=== PATIENT | female | born 1975 | race Caucasian/White ===

== ENCOUNTER 2016-08-29 22:04 | Emergency (ER) | payer BC, OTHER ==
[~2016-08-29] VITALS: Ht 165.1 cm; Wt 97.5 kg
--- NOTE | ~2016-08-29 | EKG ---
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 : 1975 Requested By: Desiree Mcghee Order Number: [id number] MD: Ed Davalos Measurements Intervals [place] Rate: 73 P: 81 [place]: 161 QRS: 12 QRSD: 118 T: -72 QT: 423 QTc: 467 Interpretive Statements Sinus rhythm Biatrial enlargement Right ventricular conduction delay LVH with IVCD and secondary repol abnrm Inferior infarct, age indeterminate Compared to ECG 08/11/2016 20:01:03 Atrial abnormality now present criteria for inferior infarct are now present nonspecific change ST and T wave segments criteria for septal infarct no longer present Electronically Signed On 08-30-2016 8:11:27 PATIENT SERVICES REP by Ed Davalos [email or web address] <ELECTRONICALLY SIGNED> By: Ed Davalos MD, FACC 08/30/16810 06 06 Ed Davalos MD, FAC /EPI
--- NOTE | ~2016-08-29 | EKG ---
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1975 Requested By: Desiree Mcghee Order Number: [id number] MD: Ed Davalos Measurements Intervals [place] Rate: 101 P: 57 WA: 193 QRS: 37 QRSD: 91 T: 73 QT: 341 QTc: 442 Interpretive Statements Sinus tachycardia Poor R-wave progression Nonspecific ST and T wave abnormality No previous ECGs available for comparison Electronically Signed On 08-30-2016 8:09:05 SOCIAL WORK INSTRUCTOR by Ed Davalos [email or web address] <ELECTRONICALLY SIGNED> By: Ed Davalos MD, [facility] 08/30/16 0809 09 09 Ed Davalos MD, FACC /EPI
[~2016-08-29 22:04] MED LIST: CIPRO500 MG PO; FLEXERIL PO; IBUPROFEN 800800 MG PO; PEPCID20 MG PO; ZOFRAN ODT4 MG PO; ZOFRAN ODT8 MG PO
[2016-08-29 23:55] LABS: ABSOLUTE NEUTROPHILS 5.5 thou/uL (1.4-8.2); BASOPHILS 1.1 % (0.0-2.0); EOSINOPHILS 1.2 % (0.0-3.0); HEMOGLOBIN 10.5 gm/dL (12.0-15.0); LYMPHOCYTES 26.1 % (24.0-44.0); MCHC 31.9 % (28.0-37.0); MONOCYTES 7.6 % (1.0-8.0); PLATELET COUNT 223 thou/uL (150-400); RBC 4.58 mil/uL (4.20-5.00); RDW 16.2 % (10.5-14.5); WBC 8.7 thou/uL (4.0-11.0)
[2016-08-29 23:56] LABS: MANUAL DIFF NO
[2016-08-30 00:04] LABS: CALCIUM 8.5 mg/dL (8.5-10.1); CREATININE 0.7 mg/dL (0.6-1.3); POTASSIUM 3.6 mmol/L (3.5-5.1)
[2016-08-30 02:42] VITALS: BP 113/71
== END 2016-08-30 02:43 | disposition home or self-care (01) ==
LOC: ER 22:04
PROVIDERS: Emergency Medicine
DX: R00.2 Palpitations (principal); R51 Headache; F17.210 Nicotine dependence, cigarettes, uncomplicated; R91.1 Solitary pulmonary nodule; Z90.49 Acquired absence of other specified parts of digestive tract; Z98.890 Other specified postprocedural states

== ENCOUNTER 2016-11-19 04:29 | Emergency (ER) | payer OTHER ==
[~2016-11-19] VITALS: Ht 162.6 cm; Wt 99.8 kg
--- NOTE | ~2016-11-19 | EKG ---
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: RITCHIE : 1975 Requested By: Noemí Falcon Order Number: [id number] MD: Christopher Hassan Measurements Intervals [place] Rate: 67 P: 26 VT: 173 QRS: 32 QRSD: 89 T: 43 QT: 409 QTc: 432 Interpretive Statements Sinus rhythm Low voltage, precordial leads Compared to ECG 08/29/2016 22:10:21 Low QRS voltage now present Sinus tachycardia no longer present Poor R-wave progression no longer present ST (T wave) deviation no longer present Electronically Signed On 11-19-2016 13:34:23 CDT by Christopher Hassan [email or web address] <ELECTRONICALLY SIGNED> By: Christopher Hassan MD 11/19/16 1334 0435 0435 Christopher Hassan MD /EPI
[2016-11-19 05:12] LABS: ABSOLUTE NEUTROPHILS 3.6 thou/uL (1.4-8.2); BASOPHILS 0.8 % (0.0-2.0); EOSINOPHILS 2.3 % (0.0-3.0); HEMATOCRIT 35.2 % (37.0-47.0); LYMPHOCYTES 30.7 % (24.0-44.0); MCH 22.5 pg (26.0-34.0); MCHC 31.2 g/dL (28.0-37.0); MCV 72.1 fL (80.0-100.0); MONOCYTES 8.4 % (1.0-8.0); PLATELET COUNT 219 thou/uL (150-400); POLYS 57.8 % (36.0-66.0); RBC 4.88 mil/uL (4.20-5.00); RDW 17.1 % (10.5-14.5); WBC 6.3 thou/uL (4.0-11.0)
[2016-11-19 05:14] LABS: MANUAL DIFF NO
[2016-11-19 05:19] LABS: URINE BILIRUBIN NEGATIVE (Negative); URINE BLOOD TRACE (Negative); URINE COLOR YELLOW; URINE GLUCOSE-RANDOM* NEGATIVE (Negative); URINE KETONES NEGATIVE (Negative); URINE LEUKOCYTES-REFLEX TRACE (Negative); URINE PROTEIN (DIPSTICK) NEGATIVE (Negative); URINE SPECIFIC GRAVITY 1.025 (1.003-1.035)
[2016-11-19 05:25] LABS: APTT 28.2 Seconds (24.5-32.8); PROTIME 10.7 Seconds (9.3-11.4)
[2016-11-19 05:27] LABS: ANION GAP 11 mmol/L (7-16); BUN 9 mg/dL (7-18); CALCIUM 8.6 mg/dL (8.5-10.1); CHLORIDE 105 mmol/L (98-107); CO2 24 mmol/L (21-32); CREATININE 0.7 mg/dL (0.6-1.3); GLUCOSE 103 mg/dL (70-99); POTASSIUM 3.7 mmol/L (3.5-5.1); SODIUM 140 mmol/L (136-145)
[2016-11-19] MEDS ORDERED: ZOFRAN ODT4 MG PO (05:28)
[2016-11-19] MEDS ORDERED: ANTIVERT25 MG PO (05:28)
[2016-11-19 05:37] LABS: ALBUMIN 2.9 g/dL (3.4-5.0); ALKALINE PHOSPHATASE 55 U/L (46-116); SGOT 15 U/L (15-37); SGPT 18 U/L (30-65); TOTAL BILIRUBIN 0.1 mg/dL (<0.1-1.0); TOTAL PROTEIN 7.2 g/dL (6.4-8.2); TROPONIN-I < 0.04 ng/mL (<0.04-0.07)
[2016-11-19 05:53] VITALS: BP 120/70
[2016-11-19 08:44] LABS: ANISOCYTOSIS 1+; MICROCYTES 1+
== END 2016-11-19 05:56 | disposition home or self-care (01) ==
LOC: ER 04:29
PROVIDERS: Emergency Medicine
DX: R42 Dizziness and giddiness (principal); R11.0 Nausea; F17.210 Nicotine dependence, cigarettes, uncomplicated; Z90.49 Acquired absence of other specified parts of digestive tract

== ENCOUNTER 2017-04-06 20:45 | Emergency (ER) | payer OTHER ==
[~2017-04-06] VITALS: Ht 162.6 cm; Wt 97.5 kg
[~2017-04-06 20:45] MED LIST changes: +ANTIVERT25 MG PO
[2017-04-06] MEDS ORDERED: HYDROCODONE-AP1 EAC6 PO (22:09)
[2017-04-06] MEDS ORDERED: NAPROSYN500 MG PO (22:09)
[2017-04-06 22:13] VITALS: BP 144/90
== END 2017-04-06 22:13 | disposition home or self-care (01) ==
LOC: ER 20:45
DX: K02.9 Dental caries, unspecified (principal); F17.210 Nicotine dependence, cigarettes, uncomplicated; Z98.890 Other specified postprocedural states

== ENCOUNTER 2017-04-13 11:48 | Emergency (ER) | payer OTHER ==
[~2017-04-13] VITALS: Ht 165.1 cm; Wt 97.5 kg
[~2017-04-13 11:48] MED LIST changes: +HYDROCODONE-AP1 EAC6 PO; +NAPROSYN500 MG PO
[2017-04-13 12:09] LABS: URINE BILIRUBIN NEGATIVE (Negative); URINE BLOOD NEGATIVE (Negative); URINE COLOR YELLOW; URINE GLUCOSE-RANDOM* NEGATIVE (Negative); URINE KETONES NEGATIVE (Negative); URINE NITRITE NEGATIVE (Negative); URINE PROTEIN (DIPSTICK) NEGATIVE (Negative); URINE SPECIFIC GRAVITY 1.015 (1.003-1.035); URINE UROBILINOGEN 0.2 E.U./dl (0.2-1.0)
[2017-04-13 12:23] LABS: HEMATOCRIT 36.4 % (37.0-47.0); HEMOGLOBIN 11.4 gm/dL (12.0-15.0); MCH 22.6 pg (26.0-34.0); MCHC 31.2 g/dL (28.0-37.0); MCV 72.4 fL (80.0-100.0); RBC 5.02 mil/uL (4.20-5.00); RDW 17.5 % (10.5-14.5); WBC 15.6 thou/uL (4.0-11.0)
[2017-04-13 12:24] LABS: MANUAL DIFF YES
[2017-04-13 12:28] LABS: CALCIUM 8.9 mg/dL (8.5-10.1); CREATININE 0.7 mg/dL (0.6-1.0); POTASSIUM 4.8 mmol/L (3.5-5.1)
[2017-04-13 12:34] LABS: ALBUMIN 3.3 g/dL (3.4-5.0); TOTAL BILIRUBIN 0.4 mg/dL (<0.1-1.0)
[2017-04-13 12:50] LABS: ABSOLUTE NEUTROPHILS 8.4 thou/uL (1.4-8.2); ANISOCYTOSIS 1+; TOTAL CELL COUNT 100
[2017-04-13 12:52] LABS: HYPOCHROMASIA 1+; MICROCYTES 1+
[2017-04-13 13:21] LABS: PLATELET COUNT 142 thou/uL (150-400)
[2017-04-13] MEDS ORDERED: HYDROCODONE-AP1 EAC6 PO (14:47)
[2017-04-13] MEDS ORDERED: FLAGYL500 MG PO (15:10)
[2017-04-13 15:51] VITALS: BP 138/86
[2017-04-14 18:12] LABS: CHLAMYDIA TRACHOMATIS-PCR Negative (Negative); NEISSERIA GONORRHEA-PCR Negative (Negative)
== END 2017-04-13 15:52 | disposition home or self-care (01) ==
LOC: ER 11:48
PROVIDERS: Nurse Practitioner Family
DX: N73.9 Female pelvic inflammatory disease, unspecified (principal); N83.01 Follicular cyst of right ovary; F17.210 Nicotine dependence, cigarettes, uncomplicated; Z90.49 Acquired absence of other specified parts of digestive tract; Z98.890 Other specified postprocedural states

== ENCOUNTER 2017-04-17 20:45 | Emergency (ER) | payer OTHER | END 2017-04-17 22:56 | disposition home or self-care (01) | LOC: ER 20:45 | DX: N83.201 Unspecified ovarian cyst, right side (principal); F17.210 Nicotine dependence, cigarettes, uncomplicated; Z90.49 Acquired absence of other specified parts of digestive tract; Z98.890 Other specified postprocedural states ==

== ENCOUNTER 2017-11-12 08:31 | Emergency (ER) | payer OTHER ==
[~2017-11-12] VITALS: Ht 165.1 cm; Wt 97.5 kg
--- NOTE | ~2017-11-12 | EKG ---
[place] [address] 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 : 1975 Requested By: Nhan Rodriguez Order Number: [id number] MD: Ed Davalos Measurements Intervals [place] Rate: 75 P: 31 SD: 171 QRS: 26 QRSD: 96 T: 8 QT: 368 QTc: 411 Interpretive Statements Sinus rhythm Low voltage, precordial leads Borderline T abnormalities, anterior leads Baseline wander in lead(s) II,III,aVF Compared to ECG 11/19/2016 04:35:48 No significant change was found Electronically Signed On 11-13-2017 13:57:41 CDT by Ed Davalos [email or web address] <ELECTRONICALLY SIGNED> By: Ed Davalos MD, [facility] 11/13/17 1357 0841 0841 Ed Davalos MD, [facility] /EPI
[~2017-11-12 08:31] MED LIST changes: +FLAGYL500 MG PO; +MOBIC7.5 MG PO; +NORCO 5-325 TA1 EACH PO
[2017-11-12 09:01] LABS: ABSOLUTE NEUTROPHILS 3.9 thou/uL (1.4-8.2); EOSINOPHILS 2.4 % (0.0-3.0); HEMATOCRIT 34.8 % (37.0-47.0); HEMOGLOBIN 11.2 gm/dL (12.0-15.0); LYMPHOCYTES 28.9 % (24.0-44.0); MCH 23.4 pg (26.0-34.0); MCHC 32.1 g/dL (28.0-37.0); MCV 72.8 fL (80.0-100.0); MONOCYTES 6.5 % (1.0-8.0); PLATELET COUNT 249 thou/uL (150-400); POLYS 61.2 % (36.0-66.0); RBC 4.78 mil/uL (4.20-5.00); RDW 16.1 % (10.5-14.5); WBC 6.3 thou/uL (4.0-11.0)
[2017-11-12 09:08] LABS: ANION GAP 6 mmol/L (7-16); BUN 13 mg/dL (7-18); CHLORIDE 103 mmol/L (98-107); CO2 27 mmol/L (21-32); CREATININE 0.9 mg/dL (0.6-1.0); GLUCOSE 132 mg/dL (74-106); SODIUM 136 mmol/L (136-145)
[2017-11-12 09:09] LABS: POTASSIUM 4.2 mmol/L (3.5-5.1)
[2017-11-12 09:16] LABS: ALBUMIN 3.1 g/dL (3.4-5.0); SGOT 23 U/L (15-37); SGPT 20 U/L (30-65); TOTAL BILIRUBIN 0.2 mg/dL (<0.1-1.0); TOTAL PROTEIN 7.7 g/dL (6.4-8.2); TROPONIN-I < 0.04 ng/mL (<0.06)
== END 2017-11-12 10:59 | disposition home or self-care (01) ==
LOC: ER 08:31
PROVIDERS: Emergency Medicine
DX: R07.89 Other chest pain (principal); Z90.49 Acquired absence of other specified parts of digestive tract; F17.210 Nicotine dependence, cigarettes, uncomplicated

== ENCOUNTER 2018-04-12 22:27 | Emergency (ER) | payer OTHER ==
[~2018-04-12] VITALS: Ht 165.1 cm; Wt 104.3 kg
[2018-04-13] MEDS ORDERED: REGLAN 10 MG TA10 MG PO (00:25)
[2018-04-13 02:14] VITALS: BP 110/51
== END 2018-04-13 02:15 | disposition home or self-care (01) ==
LOC: ER 22:27
DX: R51 Headache (principal); F17.210 Nicotine dependence, cigarettes, uncomplicated; Z90.49 Acquired absence of other specified parts of digestive tract

== ENCOUNTER 2018-11-29 02:53 | Emergency (ER) | payer OTHER ==
[~2018-11-29] VITALS: Ht 165.1 cm; Wt 99.8 kg
[~2018-11-29 02:53] MED LIST changes: +REGLAN 10 MG TA10 MG PO
[2018-11-29] MEDS ORDERED: EXCEDRIN MIGRA1 EAC1 PO (03:19)
[2018-11-29 03:29] LABS: ABSOLUTE NEUTROPHILS 4.4 thou/uL (1.4-8.2); EOSINOPHILS 1.8 % (0.0-3.0); HEMATOCRIT 33.7 % (37.0-47.0); HEMOGLOBIN 10.7 gm/dL (12.0-15.0); LYMPHOCYTES 26.1 % (24.0-44.0); MCH 22.3 pg (26.0-34.0); MCHC 31.8 g/dL (28.0-37.0); MCV 70.3 fL (80.0-100.0); MONOCYTES 6.2 % (1.0-8.0); PLATELET COUNT 250 thou/uL (150-400); POLYS 64.9 % (36.0-66.0); RBC 4.79 mil/uL (4.20-5.00); WBC 6.8 thou/uL (4.0-11.0)
[2018-11-29 03:36] LABS: ANION GAP 7 mmol/L (7-16); BUN 15 mg/dL (7-18); CALCIUM 9.3 mg/dL (8.5-10.1); CHLORIDE 103 mmol/L (98-107); CO2 27 mmol/L (21-32); GLUCOSE 111 mg/dL (74-106); POTASSIUM 3.8 mmol/L (3.5-5.1); SODIUM 137 mmol/L (136-145)
[2018-11-29 03:45] LABS: TROPONIN-I <0.06 ng/mL (<0.06)
[2018-11-29 04:53] VITALS: BP 118/73
--- NOTE | 2018-11-29 08:22 | EKG ---
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 : 1975 Requested By: Janeth Burnett Order Number: [id number] MD: Christopher Hassan Measurements Intervals [place] Rate: 80 P: 35 [place]: 160 QRS: 31 QRSD: 88 T: 46 QT: 386 QTc: 446 Interpretive Statements Sinus rhythm Compared to ECG 11/12/2017 08:41:05 T-wave abnormality no longer present Electronically Signed On 11-29-2018 8:22:25 CDT by Christopher Hassan [email or web address] ��������������������������������������������� <ELECTRONICALLY SIGNED> ���������������������������������������� By: Christopher Hassan MD ��������������������������������������������� 11/29/18 0822 0307 6 Christopher Hassan MD /AMANDA
== END 2018-11-29 04:54 | disposition home or self-care (01) ==
LOC: ER 02:53
PROVIDERS: Student in an Organized Health Care Education/Training Program
DX: G43.909 Migraine, unspecified, not intractable, without status migrainosus (principal); R07.89 Other chest pain; Z90.49 Acquired absence of other specified parts of digestive tract

== ENCOUNTER 2019-08-26 17:20 | Emergency (ER) | payer OTHER ==
[~2019-08-26] VITALS: Ht 165.1 cm; Wt 106.1 kg
[~2019-08-26 17:20] MED LIST changes: +EXCEDRIN MIGRA1 EAC1 PO
[2019-08-26 18:04] LABS: URINE BILIRUBIN NEGATIVE (Negative); URINE BLOOD TRACE (Negative); URINE CLARITY CLEAR; URINE COLOR YELLOW; URINE GLUCOSE-RANDOM* NEGATIVE (Negative); URINE KETONES NEGATIVE (Negative); URINE LEUKOCYTES-REFLEX NEGATIVE (Negative); URINE NITRITE-REFLEX NEGATIVE (Negative); URINE PROTEIN (DIPSTICK) NEGATIVE (Negative); URINE SPECIFIC GRAVITY 1.025 (1.005-1.035); URINE UROBILINOGEN 0.2 E.U./dl (0.2-1.0)
[2019-08-26] MEDS ORDERED: CYCLOBENZAPRINE10 MG PO ×2 (21:57→22:14)
[2019-08-26] MEDS ORDERED: NORCO 5-325 TA1 EAC1 PO (21:57)
[2019-08-26 22:15] VITALS: BP 130/77
== END 2019-08-26 22:20 | disposition home or self-care (01) ==
LOC: ER 17:20
PROVIDERS: Physician Assistant
DX: M54.5 Low back pain (principal); G43.909 Migraine, unspecified, not intractable, without status migrainosus; Z90.49 Acquired absence of other specified parts of digestive tract; F17.210 Nicotine dependence, cigarettes, uncomplicated; Z79.82 Long term (current) use of aspirin; Z98.51 Tubal ligation status; W10.9XXA Fall (on) (from) unspecified stairs and steps, initial encounter; Y93.89 Activity, other specified; Y92.89 Other specified places as the place of occurrence of the external cause; Y99.8 Other external cause status

== ENCOUNTER 2019-09-02 18:54 | Emergency (ER) | payer OTHER ==
[~2019-09-02] VITALS: Ht 165.1 cm; Wt 107.0 kg
[~2019-09-02 18:54] MED LIST changes: +CYCLOBENZAPRINE10 MG PO; +NORCO 5-325 TA1 EAC1 PO
[2019-09-02 18:57] VITALS: BP 150/92
[2019-09-02] MEDS ORDERED: METRONIDAZOLE500 M4 (19:01)
[2019-09-02] MEDS ORDERED: AUGMENTIN 875-1 EACH PO (19:28)
== END 2019-09-02 20:21 | disposition home or self-care (01) ==
LOC: ER 18:54
DX: K04.7 Periapical abscess without sinus (principal); G43.909 Migraine, unspecified, not intractable, without status migrainosus; F17.210 Nicotine dependence, cigarettes, uncomplicated; Z90.49 Acquired absence of other specified parts of digestive tract; Z98.51 Tubal ligation status

== ENCOUNTER 2020-07-08 21:08 | Emergency (ER) | payer OTHER ==
[~2020-07-08] VITALS: Ht 165.1 cm; Wt 113.4 kg
[~2020-07-08 21:08] MED LIST changes: +AMOXICILLIN 50500 MG PO; +AUGMENTIN 875-1 EACH PO; +METRONIDAZOLE500 M4
[2020-07-08] MEDS ORDERED: HYDROCODON-ACE1 EA11 PO (21:17)
[2020-07-09 01:17] VITALS: BP 114/51
--- NOTE | 2020-07-09 07:44 | EKG ---
[facility] [place] [address] ELECTROCARDIOGRAM REPORT Name: NAYANA HOPKINS [facility]: [facility] [id number] Admission: 07/08/20 Attend Phys: Discharge: 07/09/20 Date of : [birth year] Report #: [id number] THIS REPORT FOR: cc: FAM - Family physician unknown FAM - Family physician unknown Ed Davalos MD [facility] ~ THIS REPORT FOR: //name// [facility] ED Test Date: 2020-07-08 Test Time: 21:47:41 Pat Name: NAYANA HOPKINS Department: Room: Gender: Bottle Sorter: [facility] : 1975 Requested By: Sergey Crisostomo Order Number: [id number] MD: Ed Davalos Measurements Intervals [place] Rate: 101 P: 47 [place]: 152 QRS: 42 QRSD: 83 T: 54 QT: 330 QTc: 428 Interpretive Statements Sinus tachycardia Possible anteroseptal infarct, age indeterminate Compared to ECG 11/29/2018 03:07:53 Septal Q waves are now present Electronically Signed On 07-09-2020 7:44:10 C WPF DEVELOPER by Ed Davalos [email or web address] <ELECTRONICALLY SIGNED> By: Ed Davalos MD, FAC 07/09/20 0744 46 Ed Davalos MD, [facility] /EPI
== END 2020-07-09 01:24 | disposition home or self-care (01) ==
LOC: ER 21:08
DX: J02.9 Acute pharyngitis, unspecified (principal); G43.909 Migraine, unspecified, not intractable, without status migrainosus; F17.210 Nicotine dependence, cigarettes, uncomplicated; Z90.49 Acquired absence of other specified parts of digestive tract; Z79.899 Other long term (current) drug therapy; Z20.828 Contact with and (suspected) exposure to other viral communicable diseases

== ENCOUNTER 2020-10-24 21:41 | Emergency (ER) | payer OTHER ==
[~2020-10-24] VITALS: Ht 165.1 cm; Wt 113.4 kg
[~2020-10-24 21:41] MED LIST changes: +HYDROCODON-ACE1 EA11 PO
[2020-10-24 21:56] VITALS: BP 137/101
[2020-10-24] MEDS ORDERED: PERCOCET 5-3251 EACH PO (22:11)
[2020-10-24] MEDS ORDERED: IBUPROFEN 800800 M1 PO (22:11)
== END 2020-10-24 22:26 | disposition home or self-care (01) ==
LOC: ER 21:41
DX: T24.201A Burn of second degree of unspecified site of right lower limb, except ankle and foot, initial encounter (principal); F17.210 Nicotine dependence, cigarettes, uncomplicated; G43.909 Migraine, unspecified, not intractable, without status migrainosus; X11.8XXA Contact with other hot tap-water, initial encounter; Y93.89 Activity, other specified; Y92.89 Other specified places as the place of occurrence of the external cause; Y99.0 Civilian activity done for income or pay

== ENCOUNTER 2021-03-29 14:25 | Emergency (ER) | payer OTHER ==
[~2021-03-29] VITALS: Ht 165.1 cm; Wt 111.1 kg
[~2021-03-29 14:25] MED LIST changes: +IBUPROFEN 800800 M1 PO; +PERCOCET 5-3251 EACH PO
[2021-03-29 15:12] LABS: HEMATOCRIT 35.2 % (37.0-47.0); HEMOGLOBIN 11.2 gm/dL (12.0-15.0); MCHC 31.8 g/dL (28.0-37.0); MCV 72.3 fL (80.0-100.0); RBC 4.87 mil/uL (4.20-5.00); RDW 15.9 % (10.5-14.5); WBC 4.5 thou/uL (4.0-11.0)
[2021-03-29 15:16] LABS: ANION GAP 6 mmol/L (7-16); BUN 8 mg/dL (7-18); CALCIUM 8.7 mg/dL (8.5-10.1); CHLORIDE 103 mmol/L (98-107); CO2 28 mmol/L (21-32); CREATININE 0.9 mg/dL (0.6-1.0); GLUCOSE 91 mg/dL (74-106); POTASSIUM 3.8 mmol/L (3.5-5.1); SODIUM 137 mmol/L (136-145)
[2021-03-29 15:25] LABS: ALBUMIN 3.4 g/dL (3.4-5.0); SGOT 20 U/L (15-37); SGPT 22 U/L (14-59); TOTAL BILIRUBIN 0.3 mg/dL (0.2-1.0); TROPONIN-I <0.06 ng/mL (<0.06)
[2021-03-29 16:48] VITALS: BP 135/79
--- NOTE | 2021-03-30 07:34 | EKG ---
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 : 1975 Requested By: Renetta Abebe Order Number: [id number] MD: Alberto Rivera Measurements Intervals [place] Rate: 65 P: 22 NM: 173 QRS: 31 QRSD: 91 T: 52 QT: 421 QTc: 438 Interpretive Statements Sinus rhythm Anteroseptal infarct, age indeterminate Compared to ECG 07/08/2020 21:47:41 Sinus tachycardia no longer present Myocardial infarct finding still present Electronically Signed On 03-30-2021 7:34:38 CDT by Alberto Rivera [email or web address] <ELECTRONICALLY SIGNED> By: Alberto Rivera MD, [facility] 03/30/21 0734 99 99 Alberto Rivera MD, FACC /EPI
== END 2021-03-29 17:05 | disposition home or self-care (01) ==
LOC: ER 14:25
PROVIDERS: Nurse Practitioner Family
DX: U07.1 COVID-19 (principal); F17.210 Nicotine dependence, cigarettes, uncomplicated; G43.909 Migraine, unspecified, not intractable, without status migrainosus; Z90.49 Acquired absence of other specified parts of digestive tract; Z98.51 Tubal ligation status; Z98.890 Other specified postprocedural states